=== PATIENT | female | born 1965 | race Caucasian/White ===

== ENCOUNTER 2018-11-27 22:54 | Emergency (ER) | payer OTHER, SELFPAY ==
[2018-11-27] MEDS ORDERED: TETANUS & DIPHTHERIA TOX,ADULT 0.5 ML VIAL ONE (23:41)
[2018-11-27] MEDS ORDERED: HYDROCODONE/APAP 7.5/325 MG TAB ONE (23:41)
--- NOTE | 2018-11-28 02:27 | ER ---
Nurse's Notes [facility] Name: Pat Erwin Age: 53 yrs Sex: Female : 1965 Arrival Date: 11/27/2018 Time: 22:56 Bed 4 Private MD: Diagnosis: Head injury. Laceration scalp. cervical strain. Contusions left shoulder, left elbow and right forearm Presentation: 11/27 23:02 Presenting complaint: Patient states: Fell down about 12 stair steps ACADEMIC SERVICES COORDINATOR; States lp1 missing a step while walking down; Pain to head and left shoulder, ROM intact; slight bleeding noted to scalp; Denies LOC. Transition of care: patient was not received from another setting of care. Onset of symptoms was November 27, 2018 at 22:15. Risk Assessment: Do you want to hurt yourself or someone else? Patient reports no desire to harm self or others. Initial Sepsis Screen: Does the patient meet any 2 criteria? No. Patient's initial sepsis screen is negative. Does the patient have a suspected source of infection? No. Patient's initial sepsis screen is negative. Care prior to arrival: None. 23:02 Method Of Arrival: Wheelchair lp1 23:02 Acuity: JARED 2 lp1 Triage Assessment: 23:07 General: Appears. tl2 FILTERER: 23:05 LMP N/A - Post-menopause lp1 Historical: - Allergies: 23:04 No Known Allergies; lp1 - Home Meds: 23:04 None [Active]; lp1 - PMHx: 23:04 None; lp1 - PSHx: 23:04 None; lp1 - Immunization history:: Last tetanus immunization: > 10 years ago. - Social history:: Smoking status: Patient uses tobacco products, smokes one pack cigarettes per day. - Ebola Screening: : No symptoms or risks identified at this time. Screenin:05 Abuse screen: Denies threats or abuse. Denies injuries from another. Nutritional lp1 screening: No deficits noted. Tuberculosis screening: No symptoms or risk factors identified. 23:16 Fall Risk None identified. tl2 Assessment: 23:07 General: Appears uncomfortable, Behavior is calm, cooperative, appropriate for age. ea Pain: Complains of pain in left side of the back of head and neck Pain currently is 8 out of 10 on a pain scale. Quality of pain is described as aching. Neuro: Level of Consciousness is awake, alert, obeys commands, Oriented to person, place, time. Cardiovascular: Patient's skin is warm and dry. Respiratory: Airway is patent Respiratory effort is even, unlabored, Respiratory pattern is regular, symmetrical. Derm: Skin is pink, warm \T\ dry. 11/28 00:02 Reassessment: Patient and/or family updated on plan of care and expected duration. Pain ea level reassessed. Patient is alert, oriented x 3, equal unlabored respirations, skin warm/dry/pink. 01:26 Reassessment: Patient and/or family updated on plan of care and expected duration. Pain ea level reassessed. Patient is alert, oriented x 3, equal unlabored respirations, skin warm/dry/pink. Awaiting on CT results. 02:21 Reassessment: Patient and/or family updated on plan of care and expected duration. Pain ea level reassessed. Patient is alert, oriented x 3, equal unlabored respirations, skin warm/dry/pink. Awaiting on CT results. 02:38 Reassessment: Patient appears in no apparent distress at this time. Patient and/or tl2 family updated on plan of care and expected duration. Pain level reassessed. Patient is alert, oriented x 3, equal unlabored respirations, skin warm/dry/pink. pt verbalized understanding of discharge instructions, need for follow up wound care Patient states feeling better. Vital Signs: 11/27 23:05 BP 122 / 88; Pulse 87; Resp 16; Temp 98.1(O); Pulse Ox 99% on R/A; Weight 58.97 kg; lp1 Height 5 ft. 5 in. (165.10 cm); Pain 10/10; 11/28 00:01 BP 125 / 82; Pulse 72; Resp 18; Pulse Ox 99% on R/A; ea 01:45 BP 122 / 78; Pulse 70; Resp 18; Pulse Ox 99% on R/A; ea 02:24 BP 128 / 80; Pulse 72; Resp 18; Temp 98(O); Pulse Ox 99% on R/A; ea 11/27 23:05 Body Mass Index 21.63 (58.97 kg, 165.10 cm) lp1 ED Course: 11/27 22:56 Patient arrived in ED. tl2 22:57 Zuniga, Pin, MD is Attending Physician. pkl 23:04 Triage completed. lp1 23:05 Arm band placed on. lp1 23:06 Rigid cervical collar applied. tl2 23:07 Leatha Moya, STEVE is Primary Nurse. ea 23:09 Patient has correct armband on for positive identification. Placed in gown. Bed in low ea position. Call light in reach. Side rails up X2. 23:16 Wound care: to laceration located on scalp was cleaned with soap and water, Patient tl2 tolerated well. 23:49 X-ray completed. Portable x-ray completed in exam room. Patient tolerated procedure kw well. 23:52 Shoulder Left (2 View) XRAY In Process Unspecified. EDMS 23:52 Elbow Left 3 View XRAY In Process Unspecified. EDMS 11/28 00:42 Forearm Right XRAY In Process Unspecified. EDMS 01:18 CT Head C Spine In Process Unspecified. EDMS 01:56 CT completed. Patient tolerated procedure well. Patient moved to CT via stretcher. Patient moved back from CT. 02:26 No provider procedures requiring assistance completed. Patient did not have IV access ea during this emergency room visit. Administered Medications: 11/27 23:35 Drug: Tetanus-Diphtheria Toxoid Adult 0.5 ml {Life Science Technician: [employer] Exp: tl2 10/18/2020. Lot #: [id number]. } Route: IM; Site: right deltoid; 11/28 01:00 Follow up: Response: No adverse reaction ea 11/27 23:35 Drug: [place] (7.5 mg-325 mg) 1 tabs Route: PO; tl2 11/28 00:00 Follow up: Response: No adverse reaction; Pain is decreased ea Outcome: 02:26 Discharge ordered by . pkangelica 02:38 Discharged to home ambulatory, with family. tl2 02:38 Condition: stable 02:38 Discharge instructions given to patient, Instructed on discharge instructions, follow up and referral plans. wound care, Demonstrated understanding of instructions, follow-up care, medications. 02:39 Patient left the ED. tl2 Signatures: Dispatcher [employer] EDMS Glenn Zuniga MD MD pkPranav Sidhu Shy Ho Laura, RN RN lp1 Lillian Wright RN RN tl2 Leatha Moya, RN RN ea
--- NOTE | 2018-11-28 02:27 | EDPHYS ---
Physician Documentation [facility] Name: Pat Erwin Age: 53 yrs Sex: Female : 1965 Arrival Date: 11/27/2018 Time: 22:56 Bed 4 Private MD: ED Physician Glenn Zuniga HPI: 11/27 23:30 This 53 yrs old Female presents to ER via Wheelchair with unknown complaint. pkl 23:36 Details of fall: The patient fell from a height, 12 stair steps. Onset: The pkl symptoms/episode began/occurred just prior to arrival. Associated injuries: The patient sustained injury to the head, neck injury, contusion, left shoulder and elbow. [facility]: 23:05 LMP N/A - Post-menopause lp1 Historical: - Allergies: 23:04 No Known Allergies; lp1 - Home Meds: 23:04 None [Active]; lp1 - PMHx: 23:04 None; lp1 - PSHx: 23:04 None; lp1 - Immunization history:: Last tetanus immunization: > 10 years ago. - Social history:: Smoking status: Patient uses tobacco products, smokes one pack cigarettes per day. - Ebola Screening: : No symptoms or risks identified at this time. ROS: 23:36 Eyes: Negative for injury, pain, redness, and discharge, ENT: Negative for injury, pkl pain, and discharge, Neck: Negative for injury, pain, and swelling, Cardiovascular: Negative for chest pain, palpitations, and edema, Respiratory: Negative for shortness of breath, cough, wheezing, and pleuritic chest pain, Abdomen/GI: Negative for abdominal pain, nausea, vomiting, diarrhea, and constipation, Back: Negative for injury and pain, : Negative for injury, bleeding, discharge, and swelling. 23:36 MS/extremity: Positive for contusion, pain, of the left shoulder and elbow. 23:36 Skin: Positive for laceration(s), of the left occipital scalp. 23:36 Neuro: Negative for altered mental status, loss of consciousness. Exam: 23:36 Eyes: Pupils equal round and reactive to light, extra-ocular motions intact. Lids and pkl lashes normal. Conjunctiva and sclera are non-icteric and not injected. Cornea within normal limits. Periorbital areas with no swelling, redness, or edema. 23:36 Head/face: Noted is a laceration(s), that is superficial, 2 cm(s), of the left occipital scalp. 23:36 ENT: Exam is negative for acute changes. 23:36 Neck: Exam negative for acute changes. 23:36 Chest/axilla: Exam negative for acute changes. 23:36 Cardiovascular: Exam negative for acute changes. 23:36 Respiratory: the patient does not display signs of respiratory distress, Respirations: normal, Breath sounds: are clear throughout. 23:36 Abdomen/GI: Bowel sounds: normal, Palpation: abdomen is soft and non-tender, in all quadrants. 23:36 Back: Exam negative for acute changes. 23:36 : Exam negative for acute changes. 23:36 Musculoskeletal/extremity: Extremities: grossly normal except: noted in the left shoulder and elbow: pain. 23:36 Neuro: Orientation: is normal, Mentation: is normal, Cranial nerves: grossly normal, Motor: is normal. Vital Signs: 23:05 BP 122 / 88; Pulse 87; Resp 16; Temp 98.1(O); Pulse Ox 99% on R/A; Weight 58.97 kg; lp1 Height 5 ft. 5 in. (165.10 cm); Pain 10/10; 11/28 00:01 BP 125 / 82; Pulse 72; Resp 18; Pulse Ox 99% on R/A; ea 01:45 BP 122 / 78; Pulse 70; Resp 18; Pulse Ox 99% on R/A; ea 02:24 BP 128 / 80; Pulse 72; Resp 18; Temp 98(O); Pulse Ox 99% on R/A; ea 11/27 23:05 Body Mass Index 21.63 (58.97 kg, 165.10 cm) lp1 MDM: 11/27 22:57 Patient medically screened. pkl 11/28 02:23 Data reviewed: vital signs, nurses notes, radiologic studies, CT scan, plain films. pkl 11/27 23:18 Order name: CT Head C Spine pkl 11/27 23:19 Order name: Shoulder Left (2 View) XRAY pkl 11/27 23:19 Order name: Elbow Left 3 View XRAY pkl 11/28 00:06 Order name: Forearm Right XRAY pkl Administered Medications: 11/27 23:35 Drug: Tetanus-Diphtheria Toxoid Adult 0.5 ml {Obstetrics Tech: [employer]. Exp: tl2 10/18/2020. Lot #: [id number]. } Route: IM; Site: right deltoid; 11/28 01:00 Follow up: Response: No adverse reaction ea 11/27 23:35 Drug: [place] (7.5 mg-325 mg) 1 tabs Route: PO; tl2 11/28 00:00 Follow up: Response: No adverse reaction; Pain is decreased ea Disposition: 11/28/18 02:26 Discharged to Home. Impression: Head injury. Laceration scalp. cervical strain. Contusions left shoulder, left elbow and right forearm. - Condition is Stable. - Medication Reconciliation Form, Thank You Letter, Antibiotic Education, Prescription Opioid Use form. - Follow up: Private Physician; When: 1 - 2 days; Reason: Re-evaluation by your physician. - Problem is new. - Symptoms have improved. Signatures: Dispatcher [employer] EDMS Glenn Zuniga MD MD pkl Soraida Zamarripa RN RN 1 Lillian Wright RN RN tl2 Leatha Moya RN, ea Corrections: (The following items were deleted from the chart) 02:39 02:26 11/28/2018 02:26 Discharged to Home. Impression: Head injury. Laceration scalp. tl2 cervical strain. Contusions left shoulder, left elbow and right forearm. Condition is Stable. Forms are Medication Reconciliation Form, Thank You Letter, Antibiotic Education, Prescription Opioid Use. Follow up: Private Physician; When: 1 - 2 days; Reason: Re-evaluation by your physician. Problem is new. Symptoms have improved. pkl
--- NOTE | 2018-11-28 08:13 | RAD REPORT ---
EXAM DESCRIPTION: RAD - Shoulder Left 2 View - 11/27/2018 11:51 pm CLINICAL HISTORY: Left shoulder pain following fall down stairs COMPARISON: None. TECHNIQUE: Internal and external rotation views of the left shoulder were obtained. FINDINGS: There is no fracture or dislocation. AC joint is normal in appearance. No acute or suspici ous findings. IMPRESSION: Negative two-view left shoulder examination.
--- NOTE | 2018-11-28 08:14 | RAD REPORT ---
EXAM DESCRIPTION: RAD - Elbow Left 3 View - 11/27/2018 11:51 pm CLINICAL HISTORY: Elbow pain, patient fell downstairs COMPARISON: None. FINDINGS: No fracture is identified and no elevated posterior fat pad. There is no dislocation or pe riosteal reaction noted. No foreign body or other soft tissue abnormality. IMPRESSION: Negative left elbow examination.
--- NOTE | 2018-11-28 08:16 | RAD REPORT ---
EXAM DESCRIPTION: RAD - Forearm Right - 11/28/2018 12:45 am CLINICAL HISTORY: Fall down stairs, arm pain COMPARISON: None. FINDINGS: No fracture is identified. There is no dislocation or periosteal reaction noted. Small bon e density adjacent to the pisiform bone is not an acute finding. Carpal bones are not optimally visua lized on these projections. No foreign body or other soft tissue abnormality. IMPRESSION: Negative right forearm examination. Carpal bones are not optimally imaged. Follow-up imaging could be performed if the patient has sympto ms localizing to the wrist.
--- NOTE | 2018-11-28 12:32 | RAD REPORT ---
EXAM DESCRIPTION: CT - Head C Spine Mpr Wo Con - 11/28/2018 4:39 am CLINICAL HISTORY: The patient is 53 years old and is Female; fall TECHNIQUE: Axial computed tomography images of the head/brain and cervical spine without intravenous contrast. Sagittal and coronal reformatted images were created and reviewed. This CT exam was pe rformed using one or more of the following dose reduction techniques: automated exposure control, a djustment of the mA and/or kV according to patient size, and/or use of iterative reconstruction techn ique. COMPARISON: No relevant prior studies available. FINDINGS: BRAIN: Unremarkable. No hemorrhage. No significant white matter disease. No edema. VENTRICLES: Unremarkable. No ventriculomegaly. SKULL: No acute fracture. SINUSES: Unremarkable as visualized. No acute sinusitis. MASTOID AIR CELLS: Unremarkable as visualized. No mastoid effusion. VERTEBRAE: Reversal of the normal cervical curvature is present. The vertebral body heights an d alignment are maintained. There is no acute fracture. DISCS/SPINAL CANAL/NEURAL FORAMINA: The intervertebral disc spaces are maintained. No spinal can al stenosis. SOFT TISSUES: The soft tissues are normal. LUNG APICES: The lung apices are clear. IMPRESSION: 1. Reversal of the normal cervical curvature is present. Findings may be secondary t o patient positioning versus muscle spasm. 2. No acute intracranial findings. Electronically signed by: Aranza You MD 11/28/2018 1:29 AM CDT Due to temporary technical issues with the PACS/Fluency reporting system, reports are being signed by the in house radiologist as a courtesy to ensure prompt reporting. The interpreting radiologist is f ully responsible for the content of the report.
== END 2018-11-28 02:39 | disposition home or self-care (01) ==
LOC: ER 22:54
DX: S01.01XA Laceration without foreign body of scalp, initial encounter (principal); S16.1XXA Strain of muscle, fascia and tendon at neck level, initial encounter; S40.012A Contusion of left shoulder, initial encounter; S50.02XA Contusion of left elbow, initial encounter; S50.11XA Contusion of right forearm, initial encounter; F17.210 Nicotine dependence, cigarettes, uncomplicated; W10.9XXA Fall (on) (from) unspecified stairs and steps, initial encounter; Y93.9 Activity, unspecified; Y92.9 Unspecified place or not applicable; Z23 Encounter for immunization
CPT/HCPCS: 70450; 72125; 90714; 99284

== ENCOUNTER 2022-09-19 10:27 | Emergency (ER) | payer OTHER ==
--- OUTSIDE RECORDS SUMMARY | 2022-09-19 10:32 | XMS REPORT | Continuity of Care Document ---
:1965 [address] [facility] t Address [address] [place] [address] Care Team Providers Name Role Phone Gracie Crowley DO Attending Clinician GRACIE CROWLEY Attending Clinician Unavailable Payers Payer Name Policy Type Policy Number Effective Date Expiration Date S ource Problems Condition Condition Condition Status Onset Resolution Last Treating Co mments Source Name Details Category Date Date Treatment Clinician Date No known No known Disease Unive rs active active ity of problems problems [facility] Allergies, Adverse Reactions, Alerts Allergy Allergy Status Severity Reaction(s) Onset Inactive Treating Comm ents Source Name Type Date Date Clinician NO KNOWN Drug Active Univers ALLERGIE Class ity of S [facility] Social History Social Habit Start Date Stop Date Quantity Comments Source Sex Assigned At [birth year] [facility] 00:00:00 00:00:00 [facility] Smoking Status Start Date Stop Date Source Unknown if ever smoked [facility] Medications Ordered Filled Start Stop Current Ordering Indication Dosage Frequency Signature Comments Components Source Medication Medication Date Date Medication? Clinician (SIG) Name Name ibuprofen 2020- No 600mg 600 mg, Uni vers (IBU) 04-13 Oral, ity of tablet 600 15:30: 14:22 ONCE, 1 [place] as mg 00 :00 dose, [facility] 04/13/21 at [place] 1030, CODY diazePAM 2020- No 5mg 5 mg, Univers (VALIUM) 04-13 Oral, ity of tablet 5 mg 15:30: 14:21 [place] dose, [facility] 04/13/21 at [place] 1030, CODY cyclobenzap Yes [id number] 10mg Take 1 Univers rine 10 mg 8-10 tablet by ity of tablet 00:00: mouth 3 (three) [facility] daily as needed for Muscle Spasms. predniSONE Yes Take 3 Unive rs 20 mg 3-07 tablets PO ity of tablet 00:00: Daily [facility] acyclovir Yes 200mg Take 1 Unive rs 200 mg 3-07 capsule by ity of capsule 00:00: mouth 5 (five) [facility] daily. Vital Signs Vital Name Observation Time Observation Value Comments Source Systolic blood 2021-04-13 14:15:00 149 mm[Hg] Univer sity of pressure [facility] Diastolic blood 2021-04-13 14:15:00 86 mm[Hg] [facility] Heart rate 2021-04-13 14:15:00 66 /min [facility] Body temperature 2021-04-13 14:15:00 37.17 Jazmin [facility] Respiratory rate 2021-04-13 14:15:00 18 /min [facility] Body weight 2021-04-13 14:15:00 58.968 kg [facility] Procedures Procedure Date / Time Performed Performing Clinician [facility] e CONSENT/REFUSAL FOR 2021-04-13 14:07:43 Doctor Unassigned, No Un [facility] DIAGNOSIS AND Name [facility] TREATMENT Encounters Start End Encounter Admission Attending Care Care Encounter Source Date/Time Date/Time Type Type Clinicians Facility Department ID 2022-09-13 2022-09-13 Outpatient [facility] [id number] U[place] 11:18:42 11:18:42 [id number] [place] 2022-08-10 2022-08-10 Outpatient [facility] [id number] Umair 13:32:39 13:32:39 [address] [place] 2022-08-06 2022-08-06 Outpatient [facility] [id number] Umair 09:43:29 09:43:29 [address] [place] 2021-04-13 2021-04-13 Emergency Carline [facility] [id number] [facility] 09:18:00 10:10:00 Gracie Marin [id number] [place] [id number] [facility] [id number] [place] [id number] [place] 2021-04-13 2021-04-13 Emergency X CARLINE [facility] [id number] [facility] 09:18:00 09:18:00 GRACIE gonzalez of [facility] Results This patient has no known results.
--- NOTE | 2022-09-19 11:01 | EDPHYS ---
Physician Documentation [facility] Name: Pat Erwin Age: 57 yrs Sex: Female : 1965 Arrival Date: 09/19/2022 Time: 10:36 Bed Treatment Private MD: ED Physician Jean Marie Jensen HPI: 09/19 11:00 This 57 yrs old Female presents to ER via Ambulatory with complaints of Insect Bite, jh7 Rash. 11:00 Onset: The symptoms/episode began/occurred 1 week(s) ago. Patient reports itchy rash jh7 starting on hands 1 week ago and now spreading to her face and head. Reports that she is seeing bugs in her house and on her hands. Also reports that her dog was recently diagnosed with mange and thinks she got something from her dog.. Historical: - Allergies: 11:00 No Known Allergies; kr3 - Immunization history:: Adult Immunizations not up to date. - Social history:: Smoking status: unknown. ROS: 11:00 Constitutional: Negative for fever, chills, and weight loss, ENT: Negative for injury, jh7 pain, and discharge, Cardiovascular: Negative for chest pain, palpitations, and edema, Respiratory: Negative for shortness of breath, cough, wheezing, and pleuritic chest pain, Back: Negative for injury and pain, MS/Extremity: Negative for injury and deformity, Neuro: Negative for headache, weakness, numbness, tingling, and seizure. 11:00 Skin: Positive for rash. 11:00 All other systems are negative. Exam: 11:00 Constitutional: This is a well developed, well nourished patient who is awake, alert, jh7 and in no acute distress. Cardiovascular: Regular rate and rhythm with a normal S1 and S2. No gallops, murmurs, or rubs. Normal PMI, no JVD. No pulse deficits. Respiratory: Lungs have equal breath sounds bilaterally, clear to auscultation and percussion. No rales, rhonchi or wheezes noted. No increased work of breathing, no retractions or nasal flaring. Back: No spinal tenderness. No costovertebral tenderness. Full range of motion. MS/ Extremity: Pulses equal, no cyanosis. Neurovascular intact. Full, normal range of motion. Neuro: Awake and alert, GCS 15, oriented to person, place, time, and situation. Normal gait. 11:00 Skin: scabies, on the face and scalp and left hand and right hand. Vital Signs: 10:58 BP 158 / 98; Pulse 68; Resp 18; kr3 MDM: 10:37 Patient medically screened. jh7 10:45 Differential diagnosis: Scabies, bedbugs. Data reviewed: vital signs, nurses notes. I jh7 considered the following discharge prescriptions or medication management in the emergency department Rx permethrin and hydroxyzine for itching. Counseling: I had a detailed discussion with the patient and/or guardian regarding: the historical points, exam findings, and any diagnostic results supporting the discharge/admit diagnosis, to return to the emergency department if symptoms worsen or persist or if there are any questions or concerns that arise at home. Special discussion: Discussed the need to call an rheumatologist, wash clothes thoroughly, and take medication as directed.. Administered Medications: No medications were administered Disposition: 16:17 Co-signature as Attending Physician, Jean Marie Jensen MD I reviewed the patient's care rt provided by the Advanced Practice Provider and agree with the diagnosis and treatment plan. Disposition Summary: 09/19/22 11:00 Discharge Ordered Location: Home [facility] Problem: new jh7 Symptoms: are unchanged jh Condition: Stable jh7 Diagnosis - Scabies 7 Followup: 7 - With: Private Physician - When: 2 - 3 days - Reason: Recheck today's complaints Discharge Instructions: - Discharge Summary Sheet jh7 - Scabies, Adult jh7 Forms: - Medication Reconciliation Form 7 - Thank You Letter [facility] Prescriptions: - permethrin 5 % Topical cream - apply 1 application by TOPICAL route one time leave on for 8-14 hr, then remove jh7 by thorough washing; 1 tube; Refills: 0, Product Selection Permitted - Hydroxyzine HCl 50 mg Oral Tablet - take 1 tablet by ORAL route every 8 hours As needed; 20 tablet; Refills: 0, jh7 Product Selection Permitted Signatures: Claire Watkins FNP BILL CLERK 7 Gabriela Mcgregor RN RN kr3 Jean Marie Jensen MD MD rt Corrections: (The following items were deleted from the chart) 11:49 11:00 This 57 yrs old Female presents to ER via Ambulatory with complaints of Insect jh7 Bite, Rash. jh7
--- NOTE | 2022-09-19 11:01 | ER ---
Nurse's Notes [facility] Name: Pat Erwin Age: 57 yrs Sex: Female : 1965 Arrival Date: 09/19/2022 Time: 10:36 Bed Treatment Private MD: Diagnosis: Scabies Presentation: 09/19 10:58 Chief complaint: Patient states: has had several bites on body and head, thought it may kr3 be lice so I treated my head and my grandsons head for lice. After treating though nothing has gotten better. Coronavirus screen: Vaccine status: Patient reports being unvaccinated. Ebola Screen: Patient denies travel to an Ebola-affected area in the 21 days before illness onset. Initial Sepsis Screen: Does the patient meet any 2 criteria? No. Patient's initial sepsis screen is negative. Does the patient have a suspected source of infection? No. Patient's initial sepsis screen is negative. Risk Assessment: Do you want to hurt yourself or someone else? Patient reports no desire to harm self or others. Onset of symptoms was September 13, 2022. 10:58 Method Of Arrival: Ambulatory kr3 10:58 Acuity: JARED 4 kr3 Triage Assessment: 11:01 Bite description: bite sustained to scalp, right hand, left hand, right arm, left arm, kr3 right leg and left leg by an unknown animal, animal information:. General: Appears in no apparent distress. comfortable, Behavior is calm, cooperative, appropriate for age. Pain: Denies pain. 11:29 Bite description: animal information: vaccination(s) is not applicable. kr3 Historical: - Allergies: 11:00 No Known Allergies; kr3 - Immunization history:: Adult Immunizations not up to date. - Social history:: Smoking status: unknown. Screenin:26 [facility] ED Fall Risk Assessment (Adult) History of falling in the last 3 months, kr3 including since admission No falls in past 3 months (0 pts) Confusion or Disorientation No (0 pts) Intoxicated or Sedated No (0 pts) Impaired Gait No (0 pts) Mobility Assist Device Used No (0 pt) Altered Elimination No (0 pt) Score/Fall Risk Level 0 - 2 = Low Risk Oriented to surroundings, Maintained a safe environment, Educated pt \T\ family on fall prevention, incl call for assistance when getting out of bed. Abuse screen: Denies threats or abuse. Nutritional screening: No deficits noted. Tuberculosis screening: No symptoms or risk factors identified. Assessment: 11:28 Derm: Skin is red. kr3 11:28 Derm: Skin is intact, has lesions on arms. kr3 Vital Signs: 10:58 BP 158 / 98; Pulse 68; Resp 18; kr3 ED Course: 10:36 Patient arrived in ED. mr 10:37 AmoskendallClaire FNP [facility] 7 10:37 Jean Marie Jensen MD is Attending Physician. jh7 11:00 Triage completed. kr3 11:01 Patient placed in an exam room, on a stretcher. kr3 11:27 Arm band placed on right wrist. Patient placed. kr3 11:28 No provider procedures requiring assistance completed. Patient did not have IV access kr3 during this emergency room visit. 11:29 Bed in low position. Call light in reach. Side rails up X 1. kr3 Administered Medications: No medications were administered Medication: 11:29 VIS not applicable for this client. kr3 Outcome: 11:00 Discharge ordered by . jh7 11:28 Discharged to home ambulatory. kr3 11:28 Condition: stable 11:28 Discharge instructions given to patient, Instructed on discharge instructions, follow up and referral plans. medication usage, Demonstrated understanding of instructions, follow-up care, medications. 11:29 Patient left the ED. kr3 Signatures: Briana Maharaj mr JuneClaire, ALEXUS FREITSAP [facility] Gabriela Mcgregor, RN RN kr3
[2022-09-19 11:34] VITALS: BP 158/98
== END 2022-09-19 11:29 | disposition home or self-care (01) ==
LOC: ER 10:27
DX: B86 Scabies (principal)
CPT/HCPCS: 99281